=== PATIENT | male | born 1970 | race Caucasian/White ===

== ENCOUNTER 2017-07-17 10:13 | Emergency (ER) | payer BC ==
[~2017-07-17] VITALS: Ht 185.4 cm; Wt 102.8 kg
[2017-07-17 12:02] LABS: EOSINOPHIL (%) 4.3 % (0-5); EOSINOPHIL COUNT 0.3 K/uL (0-0.3); HEMATOCRIT 45.5 % (38.0-50.0); IMMATURE GRANULOCYTE (%) 0.3 % (0.0-0.7); INSTRUMENT ABS NEUTROPHIL CT 5.7 K/uL; LYMPHOCYTE COUNT 1.1 K/uL (1.0-2.8); MCH 30.2 PG (29.0-34.0); MCHC 33.6 G/DL (30.0-36.0); MCV 89.9 FL (86-99); MEAN PLAT.VOLUME 10.1 uM^3 (9.0-12.4); MONOCYTE (%) 6.9 % (3-12); MONOCYTE COUNT 0.5 K/uL (0-0.8); NEUTROPHIL (%) 73.8 % (45-76); NEUTROPHIL COUNT 5.7 K/uL (1.8-6.4); PLATELET COUNT 270 K/uL (156-360); RBC DIS.WIDTH-CV 13.1 % (11.8-14.6); RBC DIS.WIDTH-SD 42.7 % (39-53); RED BLOOD COUNT 5.06 M/uL (4.00-5.50); WHITE BLOOD COUNT 7.7 K/uL (4.1-10.2)
[2017-07-17 12:11] LABS: CHLORIDE 105 mEq/L (99-109); SODIUM 140 mEq/L (136-147)
[2017-07-17 12:12] LABS: GLUCOSE 91 mg/dL (70-99)
[2017-07-17 12:14] LABS: ANION GAP 11 MEQ/L (2-14)
[2017-07-17 12:16] LABS: GFR ESTIMATE (CALCULATED) > 59 mL/min/
[2017-07-17 12:17] LABS: UREA NITROGEN (BUN) 11 mg/dL (9-23)
[2017-07-17] MEDS ORDERED: CLEOCIN300 MG PO (13:02)
[2017-07-17 13:20] VITALS: BP 130/90
== END 2017-07-17 13:22 | disposition home or self-care (01) ==
LOC: EME 10:13
PROVIDERS: Emergency Medicine
DX: L03.114 Cellulitis of left upper limb (principal); S60.562A Insect bite (nonvenomous) of left hand, initial encounter; W57.XXXA Bitten or stung by nonvenomous insect and other nonvenomous arthropods, initial encounter
CPT/HCPCS: 80048; 85025; 99281; 99284; J0696

== ENCOUNTER 2017-10-22 19:44 | Emergency (ER) | payer BC ==
[~2017-10-22] VITALS: Ht 185.4 cm; Wt 104.9 kg
[~2017-10-22 19:44] MED LIST: CLEOCIN300 MG PO
[2017-10-22 20:39] LABS: MCH 30.8 PG (29.0-34.0); MCHC 34.2 G/DL (30.0-36.0); PLATELET COUNT 284 K/uL (156-360); RBC DIS.WIDTH-CV 12.8 % (11.8-14.6); RED BLOOD COUNT 4.78 M/uL (4.00-5.50); WHITE BLOOD COUNT 6.7 K/uL (4.1-10.2)
[2017-10-22 20:51] LABS: CHLORIDE 107 mEq/L (99-109); SODIUM 141 mEq/L (136-147)
[2017-10-22 20:53] LABS: GLUCOSE 96 mg/dL (70-99)
[2017-10-22 20:55] LABS: ANION GAP 12 MEQ/L (2-14); TOTAL BILIRUBIN 0.4 mg/dL (0.0-1.0)
[2017-10-22 20:57] LABS: ALKALINE PHOSPHATASE 66 IU/L (3-129); GFR ESTIMATE (CALCULATED) > 59 mL/min/
[2017-10-22 20:58] LABS: UREA NITROGEN (BUN) 15 mg/dL (9-23)
[2017-10-22 20:58] LABS: ADD MIUA? YES; BILIRUBIN NEGATIVE; BLOOD SMALL; COLOR YELLOW ((YELLOW)); GLUCOSE (STRIP) NEGATIVE; KETONES NEGATIVE; LEUKOCYTES NEGATIVE; NITRITE NEGATIVE; PROTEIN (STRIP) NEGATIVE; SPECIFIC GRAVITY 1.025 (1.000-1.030); UROBILINOGEN 0.2 MG/DL (0.2-1.0)
[2017-10-22 21:00] LABS: LIPASE 17 U/L (1.0-51.0)
[2017-10-22 21:10] LABS: BACTERIA NONE SEEN /HPF; EPITHELIAL CELLS NONE SEEN /HPF; MUCUS TRACE /LPF; UCUL ADDED? NO; WHITE BLOOD CELLS 0-5 /HPF (0-5)
[2017-10-22] MEDS ORDERED: BENTYL10 MG PO (22:33)
[2017-10-22 22:52] VITALS: BP 133/89
== END 2017-10-22 22:53 | disposition home or self-care (01) ==
LOC: EME 19:44
PROVIDERS: Physician Assistant Medical
DX: R10.11 Right upper quadrant pain (principal)
CPT/HCPCS: 71020; 74177; 80053; 81003; 83690; 85027; 99281; 99284; J7030